=== PATIENT | female | born 1935 | race Caucasian/White ===

== ENCOUNTER → 2018-02-20 | Outpatient (CLI) | payer MEDICARE, MEDICAID ==
[2018-02-20 14:11] LABS: URINE APPEARANCE CLOUDY; URINE BILIRUBIN NEGATIVE (NEGATIVE); URINE BLOOD TRACE (NEGATIVE); URINE COLOR YELLOW; URINE GLUCOSE NEGATIVE (NEGATIVE); URINE KETONE NEGATIVE (NEGATIVE); URINE LEUKOCYTE ESTERASE 2+ (NEGATIVE); URINE NITRATE POSITIVE (NEGATIVE); URINE PROTEIN(semi-quant) TRACE mg/dL (NEGATIVE); URINE UROBILINOGEN NORMAL (NORMAL)
[2018-02-20 14:12] LABS: URINE MUCUS PRESENT (NOT PRESENT)
== END ==
LOC: LAB 05:00
PROVIDERS: Family Medicine
DX: R30.0 Dysuria (principal)

== ENCOUNTER → 2020-07-16 | Day surgery (SDC) | payer MEDICARE, MEDICAID | END | disposition home or self-care (01) | LOC: MSO 08:45 | DX: H26.8 Other specified cataract (principal) | CPT/HCPCS: 00142; J0171; J2250; J2370; V2632 ==

== ENCOUNTER → 2021-08-07 | Outpatient (CLI) | payer MEDICARE, MEDICAID | LOC: CARDREHAB 09:09 → VAS 11:30 → CARDREHAB 11:30 → RAD 11:30 | DX: Z01.810 Encounter for preprocedural cardiovascular examination (principal); R01.1 Cardiac murmur, unspecified; R60.0 Localized edema | CPT/HCPCS: A9500 ==

== ENCOUNTER 2021-10-03 12:40 | Emergency (ER) | payer MEDICARE, MEDICAID ==
[~2021-10-03] VITALS: Ht 157.5 cm; Wt 59.1 kg
[2021-10-03 13:47] LABS: BASO # 0.03 K/mm3 (0.02-0.10); EOS # 0.17 K/mm3 (0.04-0.40); EOS % 2.5 % (1.0-5.0); HEMATOCRIT 38.3 % (37.0-47.0); HEMOGLOBIN 12.3 g/dL (12.5-16.0); LYMPH# 1.73 K/mm3 (1.50-4.00); MEAN CELL VOLUME 94 fl (78-100); MEAN CORPUSCULAR HEMOGLOBIN 30 pg (27-31); MEAN CORPUSCULAR HGB CONC 32 g/dL (33-37); MEAN PLATELET VOLUME 10.9 fl (7.4-10.4); MONO # 0.61 K/mm3 (0.20-0.80); NEU # 4.13 K/mm3 (1.40-6.50); PLATELET COUNT 156 K/mm3 (130-400); RED BLOOD COUNT 4.08 M/mm3 (4.10-5.30); RED CELL DISTRIBUTION WIDTH 13.6 % (11.5-14.5); WHITE BLOOD COUNT 6.7 K/mm3 (4.8-10.8)
[2021-10-03 13:54] LABS: POTASSIUM 4.1 mmol/L (3.5-5.1)
[2021-10-03 13:55] LABS: CALCIUM 9.6 mg/dL (8.3-10.5)
[2021-10-03] MEDS ORDERED: CLEOCIN HCL150 M1 PO (15:26)
[2021-10-03 16:18] VITALS: BP 108/51
== END 2021-10-03 17:05 | disposition home or self-care (01) ==
LOC: ED 12:40
PROVIDERS: Family Medicine
DX: T63.331A Toxic effect of venom of brown recluse spider, accidental (unintentional), initial encounter (principal); Z88.0 Allergy status to penicillin; Z28.310 Unvaccinated for COVID-19
CPT/HCPCS: J0696

== ENCOUNTER → 2021-12-23 | Outpatient (CLI) | payer MEDICARE, MEDICAID ==
[~2021-12-23] MED LIST: CLEOCIN HCL150 M1 PO
== END ==
LOC: MAMMO 15:12
DX: Z12.31 Encounter for screening mammogram for malignant neoplasm of breast (principal)

== ENCOUNTER → 2021-12-23 | Outpatient (CLI) | payer MEDICARE, MEDICAID | LOC: MAMMO 15:20 | DX: Z13.820 Encounter for screening for osteoporosis (principal); Z78.0 Asymptomatic menopausal state ==

== ENCOUNTER 2024-07-05 17:59 | Emergency (ER) | payer MEDICARE, MEDICAID ==
[~2024-07-05] VITALS: Ht 157.5 cm; Wt 52.3 kg
[~2024-07-05 17:59] MED LIST changes: +CEPHALEXIN250 MG PO
[2024-07-05] MEDS ORDERED: FUROSEMIDE20 MG PO (18:20)
[2024-07-05 18:28] LABS: BASO # 0.04 K/mm3 (0.02-0.10); EOS # 0.16 K/mm3 (0.04-0.40); EOS % 2.5 % (1.0-5.0); HEMATOCRIT 39.3 % (37.0-47.0); HEMOGLOBIN 12.4 g/dL (12.5-16.0); LYMPH# 1.41 K/mm3 (1.50-4.00); MEAN CELL VOLUME 96 fl (78-100); MEAN CORPUSCULAR HEMOGLOBIN 30 pg (27-31); MEAN CORPUSCULAR HGB CONC 32 g/dL (33-37); MEAN PLATELET VOLUME 10.8 fl (7.4-10.4); MONO # 0.45 K/mm3 (0.20-0.80); NEU # 4.28 K/mm3 (1.40-6.50); PLATELET COUNT 157 K/mm3 (130-400); RED BLOOD COUNT 4.09 M/mm3 (4.10-5.30); RED CELL DISTRIBUTION WIDTH 13.8 % (11.5-14.5); WHITE BLOOD COUNT 6.4 K/mm3 (4.8-10.8)
[2024-07-05 18:35] LABS: ALBUMIN 4.3 g/dL (3.4-4.8)
[2024-07-05 18:37] LABS: CALCIUM 10.1 mg/dL (8.3-10.5)
[2024-07-05 18:38] LABS: TOTAL PROTEIN 7.5 g/dL (6.2-8.1)
[2024-07-05 18:40] LABS: TOTAL BILIRUBIN 0.4 mg/dL (0.2-1.2)
[2024-07-05 18:44] LABS: MAGNESIUM 2.02 mg/dL (1.60-2.60)
[2024-07-05 19:30] VITALS: BP 120/95
== END 2024-07-05 19:30 | disposition home or self-care (01) ==
LOC: ED 17:59
PROVIDERS: Family Medicine
DX: R25.2 Cramp and spasm (principal); R60.0 Localized edema; R79.89 Other specified abnormal findings of blood chemistry; D64.9 Anemia, unspecified

== ENCOUNTER 2024-07-21 03:22 | Emergency (ER) | payer MEDICARE, MEDICAID ==
[~2024-07-21 03:22] MED LIST changes: +FUROSEMIDE20 MG PO
[2024-07-21] MEDS ORDERED: NATURAL IRON65 MG PO (03:26)
[2024-07-21] MEDS ORDERED: Acetaminophen 325 MG TAB PO ONE (07:45)
[2024-07-21 08:12] VITALS: BP 128/59
== END 2024-07-21 08:12 | disposition home or self-care (01) ==
LOC: ED 03:22
DX: S89.92XA Unspecified injury of left lower leg, initial encounter (principal); W05.0XXA Fall from non-moving wheelchair, initial encounter